=== PATIENT | female | born 1985 | race Caucasian/White ===

== ENCOUNTER 2025-05-14 10:14 | Emergency (ER) | payer MEDICARE, BC ==
[~2025-05-14] VITALS: Ht 162.6 cm; Wt 74.8 kg
[2025-05-14] MEDS: LEVETIRACETAM (500MG) 500 MG in IV NS 0.9% 100 ML IV SCH (10:30)
[2025-05-14 10:46] LABS: PLATELET COUNT (AUTO) 305 K/uL (150-450); RED BLOOD CELL COUNT(AUTO) 5.06 MIL/uL (4.0-5.2); RED CELL DISTRIBUTION WIDTH 13.1 % (11.5-15.0); WHITE BLOOD COUNT (AUTO) 9.1 K/uL (4.3-11.0)
[2025-05-14] MEDS ORDERED: LORAZEPAM INJ 2 MG/ML VIAL ONE (10:46)
[2025-05-14] MEDS: LORAZEPAM INJ 2 MG/ML VIAL IV ONE (10:51)
[2025-05-14 11:00] LABS: CALCIUM, SERUM 9.0 mg/dL (8.5-10.1); CREATININE 1.0 mg/dL (0.6-1.3); SODIUM SERUM 136.0 mmol/L (136-145); UREA NITROGEN, BLOOD 10.0 mg/dL (7-18)
[2025-05-14 11:55] VITALS: BP 121/81; TEMP 98.3; O2SAT 99
== END 2025-05-14 11:55 | disposition home or self-care (01) ==
LOC: ER 10:26
DX: R56.9 Unspecified convulsions (principal); Z88.0 Allergy status to penicillin; Z88.6 Allergy status to analgesic agent
CPT/HCPCS: 99284; 96365; 96375; 85025; 80048; 36415; 82962; 84702; J2060; J7030; J1953